=== PATIENT | female | born 1970 | race Caucasian/White ===

== ENCOUNTER 2016-10-11 03:48 | Emergency (ER) | payer MEDICARE, MEDICAID ==
[2016-10-11 03:49] VITALS: BMI 21.4
== END 2016-10-11 05:38 | disposition left against medical advice (07) ==
LOC: ED 03:48
DX: Z53.21 Procedure and treatment not carried out due to patient leaving prior to being seen by health care provider (principal)

== ENCOUNTER 2016-10-11 05:58 | Emergency (ER) | payer MEDICARE, MEDICAID ==
[2016-10-11 05:58] VITALS: BMI 21.4
== END 2016-10-11 07:00 | disposition left against medical advice (07) ==
LOC: ED 05:58
DX: Z53.21 Procedure and treatment not carried out due to patient leaving prior to being seen by health care provider (principal)

== ENCOUNTER 2016-11-04 23:36 | Emergency (ER) | payer MEDICARE, MEDICAID ==
[2016-11-04 23:36] VITALS: BMI 21.4
== END 2016-11-05 00:30 | disposition left against medical advice (07) ==
LOC: ED 23:36